=== PATIENT | female | born 1965 | race Caucasian/White ===

== ENCOUNTER 2016-09-28 16:11 | Observation (INO) | payer OTHER ==
[~2016-09-28] VITALS: Ht 157.5 cm; Wt 82.0 kg
[~2016-09-28 16:11] MED LIST: ALPR0.5T99 PO; METO50TA PO; PANT20 PO; SULF-154 PO
[2016-09-28 16:14] VITALS: BP 141/82; PULSE 94; RESP 20; TEMP 98; O2SAT 100
[2016-09-28] MEDS ORDERED: SODIUM CHLORIDE 0.9% FLUSH 5 ML FLUSH IVF PRN ×2 (18:00→20:45)
--- NOTE | 2016-09-28 18:19 | RADRPT ---
EXAM DATE/TIME: 09/28/2016 18:10 [facility] COMPARISON: No previous studies available for comparison. INDICATIONS : Chest pain for the past few days. MEDICAL HISTORY : Hypertension. Asthma. SURGICAL HISTORY : None. ENCOUNTER: Initial ACUITY: 2 days PAIN SCORE: 5/10 LOCATION: Bilateral chest FINDINGS: A single view of the chest demonstrates the lungs to be symmetrically aerated without evidence of mas s, infiltrate or effusion. The cardiomediastinal contours are unremarkable. Osseous structures are intact. CONCLUSION: No evidence of acute cardiopulmonary disease. Rebel Meredith MD on September 28, 2016 at 18:17 Board Certified Radiologist. This report was verified electronically.
--- NOTE | 2016-09-28 18:24 | PD ---
HPI Chief Complaint: Chest Pain Time Seen by Provider: 18:24 Travel History International Travel<30 days: No Contact w/Intl Traveler<30days: No Traveled to known affect area: No History of Present Illness HPI Patient is a 51-year-old female presenting to emergency for evaluation of chest pain. Patient states it started yesterday, it is midsternal radiating around the right side to her back. Today it's been intermittent and when it occurs is an 8 out of 10 and feels like a vice behavior therapist. She reports that last night her arms also felt numb and she was short of breath. Patient's past medical history includes hypertension, GERD, hyperlipidemia, hypertriglyceridemia. Patient is not taking any standing medication because it makes her feel ill, her primary doctor is unaware that she has not taken her Crestor. Her primary doctor is [place]. Patient endorses tobacco use. She also reports a family history of heart disease. PFSH Past Medical History Anxiety: Yes High Cholesterol: Yes (ELEVATED TRIGLYCERIDES) Diminished Hearing: No Gastrointestinal Disorders: Yes (IRRITABLE BOWEL SYNDROME) GERD: Yes (GERD & IBS) Hiatal Hernia: Yes Hypertension: Yes Menopausal: Yes : 8 Para: 8 Miscarriage: 0 : 0 Past Surgical History Gynecologic Surgery: Yes Other Surgery: Yes (skin graft r foot 1970) Social History Alcohol Use: Yes (6 BEERS TONIGHT) Tobacco Use: Yes (1 PACK PER WEEK) Substance Use: No Allergies-Medications (Allergen,Severity, Reaction): Coded Allergies: Codeine (Verified Allergy, Intermediate, ITCHING, 09/28/16) Reported Meds & Prescriptions Reported Meds & Active Scripts Active Reported Coq-10 (Coenzyme Q10 (Ubidecarenone)) 30 Mg Cap BID [place]-3 Fish Oil/Vitamin (Fish Oil-Cholecalciferol) 1,000-1,000 Mg Cap 1 Cap PO DAILY Aspirin EC (Aspirin) 81 Mg Tabdr 81 Mg PO DAILY Protonix (Pantoprazole Sodium) 20 Mg Tab 20 Mg PO DAILY Metoprolol Tartrate 50 Mg Tab 50 Mg PO BID Xanax (Alprazolam) 0.5 Mg Tab 0.5 Mg PO Q8H PRN Review of Systems Except as stated in HPI: all other systems reviewed are Neg Cardiovascular: Positive: Chest Pain or Discomfort Respiratory: Positive: Shortness of Breath Neurologic: Positive: Paresthesia Physical Exam Narrative GENERAL: Well-developed, well-nourished, alert female. Resting comfortably in no acute distress. SKIN: Warm and dry. HEAD: Atraumatic. Normocephalic. EYES: Pupils equal and round. No scleral icterus. No injection or drainage. ENT: No nasal bleeding or discharge. Mucous membranes pink and moist. NECK: Trachea midline. No JVD. CARDIOVASCULAR: Regular rate and rhythm. No murmur appreciated. RESPIRATORY: No accessory muscle use. Clear to auscultation. Breath sounds equal bilaterally. GASTROINTESTINAL: Abdomen soft, non-tender, nondistended. Hepatic and splenic margins not palpable. MUSCULOSKELETAL: No obvious deformities. No clubbing. No cyanosis. No edema. Patient is nontender to palpation on anterior chest wall. NEUROLOGICAL: Awake and alert. No obvious cranial nerve deficits. Motor grossly within normal limits. Normal speech. PSYCHIATRIC: Appropriate mood and affect; insight and judgment normal. Data Data Last Documented VS Vital Signs Date Time Temp Pulse Resp B/P Pulse Ox O2 Delivery O2 Flow Rate FiO2 09/28/16 16:14 98.0 94 20 141/82 100 Orders Electrocardiogram (09/28/16 ) Ckmb (Isoenzyme) Profile (09/28/16 17:55) Complete Blood Count With Diff (09/28/16 17:55) Comprehensive Metabolic Panel (09/28/16 17:55) Magnesium (Mg) (09/28/16 17:55) Prothrombin Time / Inr (Pt) (09/28/16 17:55) Act Partial Throm Time (Ptt) (09/28/16 17:55) Troponin I (09/28/16 17:55) Chest, Single Ap (09/28/16 17:55) Sodium Chloride 0.9% Flush (Ns Flush) (09/28/16 18:00) CKMB (09/28/16 18:30) CKMB% (09/28/16 18:30) Labs Laboratory Tests Test 09/28/16 18:30 White Blood Count 10.2 TH/MM3 Red Blood Count 4.21 MIL/MM3 Hemoglobin 13.6 GM/DL Hematocrit 39.8 % Mean Corpuscular Volume 94.7 FL Mean Corpuscular Hemoglobin 32.3 PG Mean Corpuscular Hemoglobin 34.1 % Concent Red Cell Distribution Width 13.0 % Platelet Count 260 TH/MM3 Mean Platelet Volume 8.0 FL Neutrophils (%) (Auto) 66.6 % Lymphocytes (%) (Auto) 26.1 % Monocytes (%) (Auto) 4.8 % Eosinophils (%) (Auto) 1.8 % Basophils (%) (Auto) 0.7 % Neutrophils # (Auto) 6.8 TH/MM3 Lymphocytes # (Auto) 2.7 TH/MM3 Monocytes # (Auto) 0.5 TH/MM3 Eosinophils # (Auto) 0.2 TH/MM3 Basophils # (Auto) 0.1 TH/MM3 CBC Comment DIFF FINAL Differential Comment Prothrombin Time 10.5 SEC Prothromb Time International 1.0 RATIO Ratio Activated Partial 25.1 SEC Thromboplast Time Sodium Level 140 MEQ/L Potassium Level 3.7 MEQ/L Chloride Level 103 MEQ/L Carbon Dioxide Level 26.5 MEQ/L Anion Gap 11 MEQ/L Blood Urea Nitrogen 12 MG/DL Creatinine 0.82 MG/DL Estimat Glomerular Filtration 73 ML/MIN Rate Random Glucose 118 MG/DL Calcium Level 8.8 MG/DL Magnesium Level 1.9 MG/DL Total Bilirubin 0.4 MG/DL Aspartate Amino Transf 14 U/L (AST/SGOT) Alanine Aminotransferase 20 U/L (ALT/SGPT) Alkaline Phosphatase 103 U/L Total Creatine Kinase 102 U/L Creatine Kinase MB 1.4 NG/ML Troponin I LESS THAN 0.02 NG/ML Total Protein 7.3 GM/DL Albumin 4.0 GM/DL [facility] Medical Decision Making Medical Screen Exam Complete: Yes Emergency Medical Condition: Yes Interpretation(s) Vital Signs Date Time Temp Pulse Resp B/P Pulse Ox O2 Delivery O2 Flow Rate FiO2 09/28/16 16:14 98.0 94 20 141/82 100 Differential Diagnosis AMI versus unstable angina versus pleurisy versus GERD versus AAA versus other Narrative Course Patient is a 51-year-old female presenting to emergency for evaluation of chest pain that started yesterday. Patient's past medical history is significant for hypertension and hyperlipidemia, hypertriglyceridemia which is untreated currently. Patient has a family history that is positive for cardiac disease additionally she is a tobacco user on a daily basis. Workup initiated in triage , care patient was transferred to provider when a medical bed is available. Elle Aguirre Sep 28, 2016 18:24
[2016-09-28 18:41] LABS: AUTOMATED NEUTROPHIL # 6.8 TH/MM3 (1.8-7.7); BASOPHIL # 0.1 TH/MM3 (0-0.2); BASOPHIL % 0.7 % (0.0-2.0); EOSINOPHIL # 0.2 TH/MM3 (0-0.4); EOSINOPHIL % 1.8 % (0.0-4.0); HEMATOCRIT 39.8 % (35.0-46.0); HEMO FLAGS DIFF FINAL; LYMPH % 26.1 % (9.0-44.0); LYMPHOCYTE # 2.7 TH/MM3 (1.0-4.8); MEAN CELL VOLUME 94.7 FL (80.0-100.0); MEAN CORPUSCULAR HEMOGLOBIN 32.3 PG (27.0-34.0); MEAN CORPUSCULAR HGB CONC 34.1 % (32.0-36.0); MONO % 4.8 % (0.0-8.0); NEUT % 66.6 % (16.0-70.0); PLATELET COUNT 260 TH/MM3 (150-450); RED BLOOD COUNT 4.21 MIL/MM3 (4.00-5.30); WHITE BLOOD COUNT 10.2 TH/MM3 (4.0-11.0)
[2016-09-28 18:58] LABS: APTT (PATIENT) 25.1 SEC (24.3-30.1); PROTHROMBIN TIME - PATIENT 10.5 SEC (9.8-11.6)
[2016-09-28 19:06] LABS: ANION GAP 11 MEQ/L (5-15); BICARBONATE 26.5 MEQ/L (21.0-32.0); BLOOD UREA NITROGEN 12 MG/DL (7-18); CHLORIDE 103 MEQ/L (98-107); GLOMERULAR FILTRATION RATE 73 ML/MIN (>89); MAGNESIUM 1.9 MG/DL (1.5-2.5); POTASSIUM 3.7 MEQ/L (3.5-5.1); SODIUM (NA) 140 MEQ/L (136-145)
[2016-09-28 19:11] LABS: ALKALINE PHOSPHATASE 103 U/L (45-117); ALT (GPT) 20 U/L (10-53); AST (GOT) 14 U/L (15-37); CREATINE KINASE 102 U/L (26-192); TOTAL BILIRUBIN ADULT 0.4 MG/DL (0.2-1.0)
[2016-09-28 19:24] LABS: CKMB 1.4 NG/ML (0.5-3.6)
[2016-09-28] MEDS ORDERED: PANT20 PO (19:39)
[2016-09-28] MEDS ORDERED: METO50TA PO (19:39)
[2016-09-28] MEDS ORDERED: ALPR.5 PO (19:39)
[2016-09-28] MEDS ORDERED: ASPI81TA11 PO (19:41)
[2016-09-28] MEDS ORDERED: COQ-30CA2 (19:42)
[2016-09-28] MEDS ORDERED: OMEGCAP PO (19:42)
--- NOTE | 2016-09-28 20:31 | PD ---
Physical Exam Time Seen by Provider: 20:30 Narrative 51-year-old female with a history of hypertension, hyperlipidemia, hypertriglyceridemia, GERD, anxiety presents to the emergency department for evaluation of chest pain. Patient was seen by provider in triage are initiated workup, please see her documentation. The patient states that she has had multiple episodes of chest pain since yesterday. Describes the pain as midsternal, sharp and intermittent. States that the pain was at its worst last night when she was asleep, woke her up out of sleep. Denies any aggravating factors. States she took aspirin which seemed to help her chest pain some. She had chest pain about 6 hours ago at this point, has not had any since then. She is not currently experiencing any chest pain. Denies any associated shortness of breath, lightheadedness, dizziness, nausea, vomiting, diaphoresis, abdominal pain. Patient does smoke about 10 cigarettes daily for the past 20 years. She is noncompliant with her cholesterol medications. Denies any personal history of heart disease or VT. States that she last had a stress test about 5 years ago and was told that it was abnormal but has never had a cardiac catheterization. States that she has a family history of heart disease , her father had an VT at age 40[address] Carrasco. No other complaints. She already took an aspirin 325 at home earlier today. GENERAL: Well-nourished and well-developed pleasant female patient in no acute distress who is nontoxic appearing. SKIN: Warm and dry. HEAD: Normocephalic and atraumatic. EYES: No injection, drainage, or hyphema noted. PERRLA. EOMI. ENT: No nasal drainage noted. Oropharynx is clear. NECK: Supple and the trachea is midline. CARDIOVASCULAR: Regular rate and rhythm. RESPIRATORY: Breath sounds are equal bilaterally with no accessory muscle use, wheezing, rhonchi, or crackles. GASTROINTESTINAL: Abdomen is soft, non-tender, and nondistended. MUSCULOSKELETAL: No obvious deformities, swelling, cyanosis, or ecchymosis is present throughout the upper and lower extremities. Patient has full range of motion without any signs of neurovascular compromise. NEUROLOGICAL: Awake, alert, and oriented. Normal speech and gait. Cranial nerves are grossly intact. Data Data Last Documented VS Vital Signs Date Time Temp Pulse Resp B/P Pulse Ox O2 Delivery O2 Flow Rate FiO2 09/28/16 16:14 98.0 94 20 141/82 100 Orders Electrocardiogram (09/28/16 ) Ckmb (Isoenzyme) Profile (09/28/16 17:55) Complete Blood Count With Diff (09/28/16 17:55) Comprehensive Metabolic Panel (09/28/16 17:55) Magnesium (Mg) (09/28/16 17:55) Prothrombin Time / Inr (Pt) (09/28/16 17:55) Act Partial Throm Time (Ptt) (09/28/16 17:55) Troponin I (09/28/16 17:55) Chest, Single Ap (09/28/16 17:55) Sodium Chloride 0.9% Flush (Ns Flush) (09/28/16 18:00) CKMB (09/28/16 18:30) CKMB% (09/28/16 18:30) Admit Order (Ed Use Only) (09/28/16 20:31) Activity Bed Rest With Brp (09/28/16 20:31) Vital Signs (Adult) Q4H (09/28/16 20:31) Cardiac Rhythm .As Directed (09/28/16 20:31) ^ Notify Dr: Other .PRN (09/28/16 20:31) ^ Notify Dr. Parameters (09/28/16 20:31) Resp Oxygen Nasal Cannula (09/28/16 ) Diet Npo (09/29/16 Breakfast) Ckmb (Isoenzyme) Profile (09/28/16 21:30) Ckmb (Isoenzyme) Profile (09/29/16 00:30) Troponin I (09/28/16 21:30) Troponin I (09/29/16 00:30) Electrocardiogram (09/28/16 20:31) Electrocardiogram (09/28/16 23:31) ^ Obtain (09/28/16 20:31) Sodium Chloride 0.9% Flush (Ns Flush) (09/28/16 20:45) Sodium Chloride 0.9% Flush (Ns Flush) (09/28/16 21:00) Acetaminophen (Tylenol) (09/28/16 20:45) Crab Backer / Telemetry AMNA.Q8H (09/28/16 20:31) Diet Heart Healthy (09/28/16 Dinner) Nicotine 14 Mg Patch.24 Hr (Habitrol 14 (09/28/16 20:45) Labs Laboratory Tests Test 09/28/16 18:30 White Blood Count 10.2 TH/MM3 Red Blood Count 4.21 MIL/MM3 Hemoglobin 13.6 GM/DL Hematocrit 39.8 % Mean Corpuscular Volume 94.7 FL Mean Corpuscular Hemoglobin 32.3 PG Mean Corpuscular Hemoglobin 34.1 % Concent Red Cell Distribution Width 13.0 % Platelet Count 260 TH/MM3 Mean Platelet Volume 8.0 FL Neutrophils (%) (Auto) 66.6 % Lymphocytes (%) (Auto) 26.1 % Monocytes (%) (Auto) 4.8 % Eosinophils (%) (Auto) 1.8 % Basophils (%) (Auto) 0.7 % Neutrophils # (Auto) 6.8 TH/MM3 Lymphocytes # (Auto) 2.7 TH/MM3 Monocytes # (Auto) 0.5 TH/MM3 Eosinophils # (Auto) 0.2 TH/MM3 Basophils # (Auto) 0.1 TH/MM3 CBC Comment DIFF FINAL Differential Comment Prothrombin Time 10.5 SEC Prothromb Time International 1.0 RATIO Ratio Activated Partial 25.1 SEC Thromboplast Time Sodium Level 140 MEQ/L Potassium Level 3.7 MEQ/L Chloride Level 103 MEQ/L Carbon Dioxide Level 26.5 MEQ/L Anion Gap 11 MEQ/L Blood Urea Nitrogen 12 MG/DL Creatinine 0.82 MG/DL Estimat Glomerular Filtration 73 ML/MIN Rate Random Glucose 118 MG/DL Calcium Level 8.8 MG/DL Magnesium Level 1.9 MG/DL Total Bilirubin 0.4 MG/DL Aspartate Amino Transf 14 U/L (AST/SGOT) Alanine Aminotransferase 20 U/L (ALT/SGPT) Alkaline Phosphatase 103 U/L Total Creatine Kinase 102 U/L Creatine Kinase MB 1.4 NG/ML Troponin I LESS THAN 0.02 NG/ML Total Protein 7.3 GM/DL Albumin 4.0 GM/DL [facility] Medical Record Reviewed: Yes Supervised Visit with DANNIELLE: No Differential Diagnosis Pleuritic chest pain versus ACS versus chest wall pain versus anxiety versus GERD Narrative Course 51-year-old female presents to the emergency department for evaluation of intermittent chest pain since yesterday. Patient is afebrile, vital signs are stable. Physical examination is unremarkable. Patient was seen and evaluated by provider in triage ordered initial workup. Please see her documentation. EKG shows normal sinus rhythm with no acute ST elevations or depressions. CBC is unremarkable. CMP is unremarkable. Troponin is less than 0.02. Coags are unremarkable. I find chest x-ray is negative for any acute abnormalities. Patient has remained stable since she has been here in the ED. No further episodes of chest pain here. She already took an aspirin at home earlier today. I recommend admission to chest pain center for repeat cardiac enzymes, EKGs and possible stress testing. Patient is agreeable with this plan. I discussed the case with my attending physician Dr. Daniels who is aware of the patients history, physical examination findings, and treatment plan. Diagnosis Primary Impression: Chest pain Qualified Code: R07.9 - Chest pain, unspecified type Admitting Information Admitting Physician Requests: Dayana Huang Sep 28, 2016 20:30
[2016-09-28] MEDS ORDERED: ACETAMINOPHEN 500 MG CPLT PO PRN (20:45)
[2016-09-28] MEDS ORDERED: NICOTINE 14 MG/24 HR PATCH TD ONE (20:45)
[2016-09-28] MEDS: SODIUM CHLORIDE 0.9% FLUSH 5 ML FLUSH IVF SCH (21:00)
[2016-09-28 21:17] VITALS: BP 114/63; PULSE 64; RESP 19; O2SAT 96
[2016-09-28 22:15] LABS: CREATINE KINASE 110 U/L (26-192)
[2016-09-28 22:35] VITALS: PULSE 85
[2016-09-29 00:15] VITALS: PULSE 74
[2016-09-29 00:29] VITALS: BP 117/77; PULSE 71; RESP 20; TEMP 97.9; O2SAT 95
[2016-09-29 01:40] LABS: CREATINE KINASE 90 U/L (26-192)
[2016-09-29 03:55] VITALS: PULSE 72
[2016-09-29 04:15] VITALS: BP 115/75; PULSE 65; RESP 20; TEMP 97.5; O2SAT 96
--- NOTE | 2016-09-29 07:37 | HHI.HP ---
HPI Primary Care Physician Parth Carmona MD Chief Complaint Chest pain History of Present Illness This is a 51-year-old female that presents to the ED via private vehicle complaining of intermittent chest discomfort 2 days. The discomfort started in the center of her chest and radiated to the right side of her back. She states the first episode occurred 2 days ago while she was at work. When they would occur they last for about 2 or 3 seconds but continued to recur several times throughout the day. Later that night the discomfort awoke her from her sleep. The discomfort was more intense but again lasts a few seconds at a time. She was short of breath with the symptoms wall. No nausea or diaphoresis. She went to work yesterday and continued to have discomforts over last 2-3 seconds at a time. No shortness red nausea diaphoresis. She was advised to go to the ED. Patient denies history of CAD. She states that her stress test. Upon reviewing records she had a nuclear ETT is nonischemic. Pelvis performed after having a Berto protocol ETT that revealed a borderline abnormal stress test with some ST depressions. Patient states that she has family support heart disease and she has hyper triglyceridemia but is unable take her Crestor as it makes her weak and dizzy. She is prescribed metoprolol tartrate 50 [place]an's twice a day but she takes only once a day stay that it makes her feel dizzy and weak as well. (Andriy Hernandez) Review of Systems General: Patient denies fevers, chills recent, and recent travel HEENT: Patient denies headache, sore throat, difficulty swallowing. Cardiovascular: Has the chest discomfort as mentioned above. Denies sensation of heart beating rapidly or irregularly. Denies diaphoresis. No syncope. Respiratory: Denies shortness of breath or inspirational chest discomfort. Denies coughing wheezing or hemoptysis. GI: Patient denies nausea, vomiting, diarrhea, abdominal pain, bloody stools. Musculoskeletal: Patient denies joint pain or edema. Denies calf pain or edema. Neurovascular: Patient denies numbness, tingling, weakness in extremities. Denies headache. Endocrine: Denies polyuria and polydipsia. Hematologic: Denies easy bruising. Skin: Denies rash or itching. (Andriy Hernandez) Past Family Social History Allergies: Coded Allergies: Codeine (Verified Allergy, Intermediate, ITCHING, 09/28/16) Past Medical History Elevated triglycerides, hypertension, hiatal hernia, tobacco abuse. Denies diabetes and known CAD. Past Surgical History Noncontributory. Reported Medications Reported Meds & Active Scripts Active Reported Coq-10 (Coenzyme Q10 (Ubidecarenone)) 30 Mg Cap BID [place]-3 Fish Oil/Vitamin (Fish Oil-Cholecalciferol) 1,000-1,000 Mg Cap 1 Cap PO DAILY Aspirin EC (Aspirin) 81 Mg Tabdr 81 Mg PO DAILY Protonix (Pantoprazole Sodium) 20 Mg Tab 20 Mg PO DAILY Metoprolol Tartrate 50 Mg Tab 50 Mg PO BID Xanax (Alprazolam) 0.5 Mg Tab 0.5 Mg PO Q8H PRN Active Ordered Medications Current Medications Medications (Trade) Dose Ordered Sig/Paul Route Start Time Stop Time Status Last Admin (NS Flush) 2 ml UNSCH PRN IVF 09/28/16 18:00 (NS Flush) 2 ml UNSCH PRN IVF 09/28/16 20:45 (NS Flush) 2 ml BID IVF 09/28/16 21:00 09/28/16 21:00 (Tylenol) 500 mg Q4H PRN PO 09/28/16 20:45 Family History Her father had his first [place] at 40. He is 82. He has had bypass. Social History Patient smokes one half pack of cigars daily for 10 years. She has on average while wine 3 times a week. She denies illicit drugs. She is a nurse. ( Andriy Hernandez) Physical Exam Vital Signs Vital Signs Date Time Temp Pulse Resp B/P Pulse Ox O2 Delivery O2 Flow Rate FiO2 09/29/16 04:15 97.5 65 20 115/75 96 09/29/16 03:55 72 09/29/16 00:29 97.9 71 20 117/77 95 09/29/16 00:15 74 09/28/16 22:35 85 09/28/16 21:17 64 19 114/63 96 Room Air 09/28/16 16:14 98.0 94 20 141/82 100 Physical Exam GENERAL: This is a well-nourished, well-developed patient, in no apparent distress. Patient speaks in clear complete sentences. Patient is pleasant. HEENT: Head is atraumatic and normocephalic. Neck is supple without lymphadenopathy and trachea is midline. No JVD or carotid bruits. CARDIOVASCULAR: Regular rate and rhythm without murmurs, gallops, or rubs. RESPIRATORY: Clear to auscultation. Breath sounds equal bilaterally. No wheezes , rales, or rhonchi. Chest wall is nontender. No use of accessory muscles. GASTROINTESTINAL: Abdomen is nontender, nondistended. Abdomen soft. No obvious pulsatile mass or bruit. No CVA tenderness. Strong femoral pulses bilaterally. Normal bowel sounds in all quadrants. MUSCULOSKELETAL: Patient is moving upper and lower extremities freely. No calf tenderness or edema, no Homans sign. Strong pulses in upper and lower extremities. NEUROLOGICAL: Patient is alert and oriented. Cranial nerves 2-12 are grossly intact. No focal deficits and speech is clear. SKIN: No rash and turgor is normal. Laboratory Laboratory Tests Test 09/28/16 09/28/16 09/29/16 18:30 21:25 00:30 White Blood Count 10.2 Red Blood Count 4.21 Hemoglobin 13.6 Hematocrit 39.8 Mean Corpuscular Volume 94.7 Mean Corpuscular Hemoglobin 32.3 Mean Corpuscular Hemoglobin 34.1 Concent Red Cell Distribution Width 13.0 Platelet Count 260 Mean Platelet Volume 8.0 Neutrophils (%) (Auto) 66.6 Lymphocytes (%) (Auto) 26.1 Monocytes (%) (Auto) 4.8 Eosinophils (%) (Auto) 1.8 Basophils (%) (Auto) 0.7 Neutrophils # (Auto) 6.8 Lymphocytes # (Auto) 2.7 Monocytes # (Auto) 0.5 Eosinophils # (Auto) 0.2 Basophils # (Auto) 0.1 CBC Comment DIFF FINAL Differential Comment Prothrombin Time 10.5 Prothromb Time International 1.0 Ratio Activated Partial 25.1 Thromboplast Time Sodium Level 140 Potassium Level 3.7 Chloride Level 103 Carbon Dioxide Level 26.5 Anion Gap 11 Blood Urea Nitrogen 12 Creatinine 0.82 Estimat Glomerular Filtration 73 Rate Random Glucose 118 Calcium Level 8.8 Magnesium Level 1.9 Total Bilirubin 0.4 Aspartate Amino Transf 14 (AST/SGOT) Alanine Aminotransferase 20 (ALT/SGPT) Alkaline Phosphatase 103 Total Creatine Kinase 102 110 90 Creatine Kinase MB 1.4 1.0 Troponin I LESS THAN 0.02 LESS THAN 0.02 LESS THAN 0.02 Total Protein 7.3 Albumin 4.0 (Andriy Hernandez) Result Diagram: 09/28/16182909/28/161829 Imaging Last Impressions Chest X-Ray 09/28/161754 Signed Impressions: Service Date/Time: Wednesday, September 28, 2016 18:10 - CONCLUSION: No evidence of acute cardiopulmonary disease. Rebel Meredith MD Course EKGs have sinus rhythm without significant ST segment depressions or elevations. (Andriy Hernandez) Assessment and Plan Assessment and Plan * Atypical chest pain: Patient had serial cardiac enzymes and EKGs for ruling out purposes. She will be seen by Dr. Froylan Austin of cardiology and the chest pain center and will undergo a nuclear ETT. She will likely be discharged home if her stress test were to be nonischemic. At that point she should follow-up with her primary care physician. * Hypertension: Continue her medication. * Hypertriglyceridemia: Patient needs discuss with physician to replace her medication at she agrees with. * Hypertension: Continue her medication. * Tobacco abuse: Patient has been counseled on the importance of smoking cessation. (Andriy Hernandez) Assessment and Plan Patient seen and examined. Pain is atypical for CAD. Will plan nuclear stress test. Discussed using fish oil and fibric acid derivatives (Froylan Austin MD) Andriy Hernandez Sep 29, 2016 07:37 Froylan Austin MD Sep 29, 2016 07:48
[2016-09-29] MEDS: SODIUM CHLORIDE 0.9% FLUSH 5 ML FLUSH IVF SCH (07:50)
[2016-09-29 08:00] VITALS: PULSE 81
[2016-09-29 08:04] VITALS: BP 111/75; PULSE 74; RESP 17; O2SAT 98
--- NOTE | 2016-09-29 10:54 | RADRPT ---
EXAM DATE/TIME: 09/29/2016 08:37 [facility] COMPARISON: No previous studies available for comparison. INDICATIONS : Susbternal chest pain radiating to back with dyspnea. Angina DOSE: 25.4 mCi Tc99m Myoview at stress 8.5 mCi Tc99m Myoview at rest REST HEART RATE: 89 BPM TARGET HEART RATE: 142 BPM MAX HEART RATE: 151 BPM REST BLOOD PRESSURE: 130/98 mmHg MAX BLOOD PRESSURE: 170/90 mmHg EJECTION FRACTION: 48% MEDICAL HISTORY : Hypertension. Gastroesophageal reflux disease. SURGICAL HISTORY : Skin graft right foot. ENCOUNTER: Initial ACUITY: 1 day PAIN SCALE: 6/10 LOCATION: Substernal chest TECHNIQUE: The patient underwent upright treadmill exercise in the chest pain center. Continuous ECG tracing wa s monitored during stress. Gated SPECT imaging was performed after stress, and conventional SPECT im aging was performed at rest. The examination was performed on a SPECT/CT scanner, both attenuation-c orrected and non-corrected datasets were reviewed. FINDINGS: DISTRIBUTION: The maximum perfused segment at stress is in the lateral wall. PERFUSION STUDY: The pattern of perfusion at stress is within normal limits. GATED STUDY: Mildly hypokinetic, mainly the septum. 48% left ventricular ejection fraction. CONCLUSION: 1. No stress-induced ischemia. 2. Mild septal hypokinesia. Low normal left ventricular ejection fraction. RISK CATEGORY: Low Rebel Meredith MD on September 29, 2016 at 10:52 Board Certified Radiologist. This report was verified electronically.
--- NOTE | 2016-09-29 11:04 | HHI.DCPOC ---
Discharge Care Plan Diagnosis: (1) Chest pain, atypical (2) Tobacco abuse Goals to Promote Your Health * To prevent worsening of your condition and complications * To maintain your health at the optimal level Directions to Meet Your Goals Take your medications as prescribed Follow your dietary instruction Follow activity as directed Keep your appointments as scheduled Take your immunizations and boosters as scheduled If your symptoms worsen call your PCP, if no PCP go to Urgent Care Center or Emergency Room Smoking is Dangerous to Your Health. Avoid second hand smoke Call the 24-hour hour crisis hotline for domestic abuse at Andriy Hernandez Sep 29, 2016 11:04
--- NOTE | 2016-09-29 12:27 | EKG ---
Date Performed: 09/28/2016 Time Performed: 16:42:49 PTAGE: 51 years EKG: Sinus rhythm NORMAL ECG PREVIOUS TRACING : 08/13/2007 01.45 Since previous tracing, no significant change noted DOCTOR: Froylan Austin Interpretating Date/Time 09/29/2016 12:25:35
--- NOTE | 2016-09-29 12:27 | EKG ---
Date Performed: 09/29/2016 Time Performed: 00:33:51 PTAGE: 51 years EKG: Sinus rhythm NORMAL ECG NO PREVIOUS TRACING DOCTOR: Froylan Austin Interpretating Date/Time 09/29/2016 12:25:14
--- NOTE | 2016-09-29 12:27 | EKG ---
Date Performed: 09/28/2016 Time Performed: 21:23:57 PTAGE: 51 years EKG: Sinus rhythm NORMAL ECG PREVIOUS TRACING : 09/28/2016 16.42 Since previous tracing, no significant change noted DOCTOR: Froylan Austin Interpretating Date/Time 09/29/2016 12:25:25
--- NOTE | 2016-09-29 12:29 | TR ---
Date Performed: 09/29/2016 Time Performed: 09:14:25 DOCTOR: Froylan Austin DRUG LIST: CLINICAL HISTORY: REASON FOR TEST: REASON FOR ENDING: OBSERVATION: CONCLUSION: KARIS PROTOCOL NUC ETT. NO CP. Maximum NH=914 % Max HR Achieved=90.0% Maximum SG=237 /90 Total Exercise Time=5:49 COMMENTS: See corresponding Nuclear Medicine report. No ECG changes present to suggest ischemia
== END 2016-09-29 11:33 | disposition home or self-care (01) ==
LOC: NEPC 16:11 → NEDA 20:37 → NEPHCDU 22:07
PROVIDERS: ADMIT Internal Medicine Interventional Cardiology; ATTEND Internal Medicine Interventional Cardiology
DX: R07.89 Other chest pain (principal); I10 Essential (primary) hypertension; E78.1 Pure hyperglyceridemia; F17.210 Nicotine dependence, cigarettes, uncomplicated; F41.9 Anxiety disorder, unspecified; K58.9 Irritable bowel syndrome, unspecified; K21.9 Gastro-esophageal reflux disease without esophagitis; K44.9 Diaphragmatic hernia without obstruction or gangrene; Z79.82 Long term (current) use of aspirin; Z91.018 Allergy to other foods; Z82.49 Family history of ischemic heart disease and other diseases of the circulatory system
CPT/HCPCS: 71010; 78452; 80053; 82550; 82552; 83735; 84484; 85025; 85610; 85730; 93005; 93017; 99285; A9502; G0378